=== PATIENT | male | born 1965 | race Hispanic/Latino ===

== ENCOUNTER 2019-12-13 12:36 | Emergency (ER) | payer BC ==
[~2019-12-13] VITALS: Ht 167.6 cm; Wt 90.7 kg
[2019-12-13] MEDS ORDERED: KETOROLAC TROMETHAMINE 30 MG/ML VIAL IM ONE (12:55)
[2019-12-13] MEDS ORDERED: DIAZEPAM 2 MG TAB PO ONE (13:00)
[2019-12-13] MEDS ORDERED: HYDROCODONE/APAP 7.5MG-325MG 1 EA TAB PO PRN (13:00)
[2019-12-13] MEDS ORDERED: DEXAMETHASONE SOD PHOS 10 MG/1 ML VIAL IM ONE (13:00)
[2019-12-13] MEDS ORDERED: LIDOCAINE 4% PATCH TP ONE (13:15)
[2019-12-13] MEDS ORDERED: DIAZEPAM 5 MG TAB PO ONE (13:15)
--- NOTE | 2019-12-13 14:29 | Diagnostic Imaging Report ---
Exam: Right shoulder radiographs-3 views History: Right shoulder pain. Comparison: None. Findings/Impression: No evidence of acute fracture or malalignment. 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 Signed by: Dr. Ya Aburto MD on 12/13/2019 2:27 PM
[2019-12-14] MEDS ORDERED: LIDOCAINE 4% PATCH TP ONE (09:00)
== END 2019-12-13 14:34 | disposition home or self-care (01) ==
LOC: ER 12:36
DX: S23.3XXA Sprain of ligaments of thoracic spine, initial encounter (principal); S29.011A Strain of muscle and tendon of front wall of thorax, initial encounter; M25.511 Pain in right shoulder
CPT/HCPCS: 73030; 99283; J1100; J1885

== ENCOUNTER 2020-11-16 19:00 | Emergency (ER) | payer BC ==
[~2020-11-16] VITALS: Ht 167.6 cm; Wt 90.7 kg
[2020-11-16] MEDS ORDERED: MORPHINE SULFATE INJ 4 MG/ML INJ 1ML IV STA (19:55)
[2020-11-16] MEDS ORDERED: ONDANSETRON HCL 4 MG ORAL DISINTEGRATING TAB PO ONE (20:00)
[2020-11-16] MEDS ORDERED: SODIUM CHLORIDE 0.9% 1000ML 1,000 ML IV ONE (20:00)
[2020-11-16 20:13] LABS: BASOPHILS # (AUTO) 0.1 (0.0-0.1); BASOPHILS % 0.6 % (0.0-1.0); HEMATOCRIT 46.4 % (38.2-49.6); HEMOGLOBIN 15.4 g/dL (14.0-18.0); LYMPHOCYTES # (AUTO) 2.8 (1.0-3.2); LYMPHOCYTES % 26.6 % (18.0-39.1); MEAN CORPUSCULAR HEMOGLOBIN 31.4 pg (28-32); MEAN CORPUSCULAR HGB CONC 33.2 g/dL (31-35); MEAN CORPUSCULAR VOLUME 94.7 fL (81-99); MONOCYTES # (AUTO) 0.7 (0.2-0.8); NEUTROPHILS # (AUTO) 6.8 (2.1-6.9); NEUTROPHILS % 65.4 % (38.7-80.0); PLATELET COUNT 252 x10e3/uL (140-360); RED CELL DISTRIBUTION WIDTH 13.4 % (11.7-14.4)
[2020-11-16 20:30] LABS: ALANINE AMINOTRANSFERASE 58 IU/L (0-55); ALBUMIN 4.2 g/dL (3.5-5.0); ALBUMIN/GLOBULIN RATIO 1.1 (0.8-2.0); ALKALINE PHOSPHATASE 57 IU/L (40-150); ANION GAP 15.8 mmol/L (8-16); BLOOD UREA NITROGEN 15 mg/dL (7-26); BUN/CREATININE RATIO 15 (6-25); CALCIUM 9.1 mg/dL (8.4-10.2); CARBON DIOXIDE 21 mmol/L (22-29); CHLORIDE 106 mmol/L (98-107); CREATININE, SERUM 1.01 mg/dL (0.72-1.25); EST GLOMERULAR FILTRATION RATE > 60 ML/MIN (60-); GLUCOSE 86 mg/dL (74-118); POTASSIUM 3.8 mmol/L (3.5-5.1); SODIUM 139 mmol/L (136-145)
[2020-11-16 20:52] LABS: AMYLASE 123 U/L (25-125); LIPASE 53 U/L (8-78)
[2020-11-16 21:09] LABS: CLARITY,URINE SL CLOUDY (CLEAR); COLOR,URINE YELLOW (YELLOW); KETONES,URINE NEGATIVE (NEGATIVE); LEUKOCYTE ESTERASE ,URINE NEGATIVE (NEGATIVE); NITRITE,URINE NEGATIVE (NEGATIVE); PROTEIN,URINE DIPSTICK NEGATIVE (NEGATIVE); URINE UROBILINOGEN 0.2 mg/dL (0.2 - 1)
[2020-11-16 21:20] LABS: WBC,URINE (MAN) 0-5 /HPF (0-5)
[2020-11-16] MEDS ORDERED: SODIUM CHLORIDE 0.9% 50ML 50 ML ONE (21:21)
[2020-11-16] MEDS ORDERED: IOPAMIDOL 370 MG/ML 200 ML INFUS..BTL INJ ONE (21:22)
[2020-11-16] MEDS ORDERED: HYDROCODONE/APAP 10MG-325MG TAB PO ONE (22:30)
[2020-11-16] MEDS ORDERED: HYDROCODON-ACE1 EAC9 PO (22:42)
[2020-11-16 23:07] VITALS: BP 121/79
== END 2020-11-16 23:20 | disposition home or self-care (01) ==
LOC: ER 19:44
DX: S22.32XA Fracture of one rib, left side, initial encounter for closed fracture (principal); Y99.8 Other external cause status; R10.10 Upper abdominal pain, unspecified; F17.200 Nicotine dependence, unspecified, uncomplicated; W19.XXXA Unspecified fall, initial encounter; Y93.55 Activity, bike riding
CPT/HCPCS: 36415; 71260; 74177; 80053; 81001; 82150; 83690; 85025; 96374; 99284; J2270; J7030; Q0162; Q9967